=== PATIENT | female | born 1965 | race Caucasian/White ===

== ENCOUNTER 2019-10-03 14:51 | Outpatient (CLI) | payer OTHER, SELFPAY ==
--- NOTE | ~2019-10-03 | MM_ITS ---
EXAMINATION: MM screening [facility] BI w anayeli HISTORY: Screening mammogram TECHNIQUE: Craniocaudal and mediolateral oblique 3-D tomosynthesis images were obtained and synthetic 2-D images were generated. CAD analysis was submitted and interpreted. COMPARISON: 09/25/2018, 09/21/2017, 08/17/2016 bilateral digital screening mammogram examinations BREAST PARENCHYMAL COMPOSITION: There are scattered areas of fibroglandular density. FINDINGS: Stable mild fibroglandular asymmetry. Scattered bilateral benign breast calcifications. The re is no evidence of suspicious mass, calcification, or architectural distortion to suggest malignanc y in either breast. There has been no suspicious interval change. IMPRESSION: 1. No mammographic evidence of malignancy. 2. Recommend routine screening mammography in one year. BI-RADS Category 2: Benign finding(s). Reviewed, dictated and finalized at location A.
== END 2019-10-03 14:52 | disposition home or self-care (01) ==
LOC: ANHIMG 14:53
PROVIDERS: PCP Family Medicine; Visit Provider Family Medicine
DX: Z12.31 Encounter for screening mammogram for malignant neoplasm of breast (principal)
CPT/HCPCS: 77063; 77067

== ENCOUNTER 2020-10-08 07:12 | Outpatient (CLI) | payer OTHER, SELFPAY ==
--- NOTE | ~2020-10-08 | MM_ITS ---
EXAMINATION: MM screening [facility] BI w anayeli HISTORY: Screening mammogram TECHNIQUE: Craniocaudal and mediolateral oblique 3-D tomosynthesis images were obtained and synthetic 2-D images were generated. CAD analysis was submitted and interpreted. COMPARISON: 10/03/2019, 09/25/2018, 09/21/2017 BREAST PARENCHYMAL COMPOSITION: There are scattered areas of fibroglandular density. FINDINGS: Scattered benign-appearing calcifications are present. Also noted is stable focal asymmetry in the central left breast, consistent with a benign finding. There is no evidence of suspicious mas s, calcification, or architectural distortion to suggest malignancy in either breast. There has been no suspicious interval change. IMPRESSION: 1. No mammographic evidence of malignancy. 2. Recommend routine screening mammography in one year. BI-RADS Category 2: Benign finding(s). Reviewed, dictated and finalized at location A.
== END 2020-10-08 07:13 | disposition home or self-care (01) ==
LOC: ANHIMG 07:16
PROVIDERS: PCP Family Medicine; Visit Provider Family Medicine
DX: Z12.31 Encounter for screening mammogram for malignant neoplasm of breast (principal)
CPT/HCPCS: 77063; 77067

== ENCOUNTER 2021-11-22 10:00 | Outpatient (CLI) | payer OTHER, SELFPAY ==
--- NOTE | ~2021-11-22 | MM_ITS ---
EXAMINATION: MM screening [facility] BI w anayeli HISTORY: Screening TECHNIQUE: Craniocaudal and mediolateral oblique 3-D tomosynthesis images were obtained and synthetic 2-D images were generated. CAD analysis was submitted and interpreted. COMPARISON: Comparison to multiple prior studies sequentially, with oldest reviewed study dated 11/2015. BREAST PARENCHYMAL COMPOSITION: There are scattered areas of fibroglandular density. FINDINGS: There is no evidence of suspicious mass, calcification, or architectural distortion to sugg est malignancy in either breast. There has been no suspicious interval change. IMPRESSION: 1. No mammographic evidence of malignancy. 2. Recommend routine screening mammography in one year. BI-RADS Category 1: Negative Reviewed, dictated and finalized at location A.
== END 2021-11-22 10:01 | disposition home or self-care (01) ==
PROVIDERS: PCP Family Medicine; Visit Provider Family Medicine
DX: Z12.31 Encounter for screening mammogram for malignant neoplasm of breast (principal)
CPT/HCPCS: 77063; 77067

== ENCOUNTER 2023-01-23 11:32 | Outpatient (NON) | payer OTHER, SELFPAY | END 2023-01-23 11:33 | disposition home or self-care (01) | PROVIDERS: PCP Family Medicine; Visit Provider Nurse Practitioner | DX: L72.0 Epidermal cyst (principal); R22.9 Localized swelling, mass and lump, unspecified | CPT/HCPCS: 88304 ==

== ENCOUNTER 2023-03-20 07:14 | Outpatient (CLI) | payer OTHER, SELFPAY ==
--- NOTE | ~2023-03-20 | MM_ITS ---
EXAMINATION: MM screening [facility] BI w anayeli HISTORY: Screening mammogram TECHNIQUE: Craniocaudal and mediolateral oblique 3-D tomosynthesis images were obtained and synthetic 2-D images were generated. CAD analysis was submitted and interpreted. COMPARISON: 11/22/2021, 10/08/2020, 10/03/2019 BREAST PARENCHYMAL COMPOSITION:There are scattered areas of fibroglandular density. FINDINGS: Bilateral benign calcifications are present. No suspicious mass, calcification, or architec tural distortion are identified in either breast to suggest malignancy. There has been no suspicious interval change. IMPRESSION: No mammographic evidence of malignancy. Recommend routine screening mammography in one year. BI-RADS Category 2: Benign finding(s). Reviewed, dictated and finalized at location . [employer]
== END 2023-03-20 07:15 | disposition home or self-care (01) ==
PROVIDERS: PCP Family Medicine; Visit Provider Family Medicine
DX: Z12.31 Encounter for screening mammogram for malignant neoplasm of breast (principal)
CPT/HCPCS: 77063; 77067

== ENCOUNTER 2024-04-15 00:16 | Day surgery (SDC) | payer OTHER, SELFPAY ==
[2024-02-22 08:38] VITALS: BMI 34.3
[2024-04-02 15:30] VITALS: BMI 29.3
--- NOTE | 2024-04-15 07:39 | WPDANESEPPF ---
Anes - Initial Pre Proc Eval Procedure: Operation Date: 04/15/24 11:30 Proposed Procedures p Colonoscopy - Carlos Nelson MD Date/Time: 04/15/24 07:39 Surgeon: Carlos Nelson MD Pre Op Diagnosis: Personal history colon polyps Patient Data Age: 59 Gender: F Height: 1.73 m Weight: 87.6 kg Allergies Allergy/AdvReac Type Severity Reaction Status Date / Time peanut Allergy Severe Blister Verified 04/15/24 10:18 Home Medications ?Medication ?Instructions ?Recorded ?Confirmed ?Type calcium 600 mg (as 1 tablet PO BID 03/01/20 02/22/24 History carbonate)-vitamin D3 20 mcg (800 unit) tablet cyanocobalamin (vitamin B-12) 1,000 mcg PO DAILY 03/01/20 02/22/24 History 1,000 mcg tablet aspirin 81 mg chewable tablet 81 mg PO DAILY 01/19/21 02/22/24 History cinnamon bark 500 mg capsule 2,000 mg PO DAILY 03/07/21 02/22/24 History (Cinnamon) magnesium citrate 100 mg tablet 500 mg PO DAILY 03/07/21 02/22/24 History milk thistle 175 mg tablet 250 mg PO BID 03/07/21 02/22/24 History pyridoxine (vitamin B6) 100 mg 100 mg PO DAILY 03/07/21 02/22/24 History tablet turmeric 400 mg capsule 500 mg PO BID 03/07/21 02/22/24 History vitamin E 200 unit capsule 180 unit PO DAILY 03/07/21 02/22/24 History ascorbic acid (vitamin C) 1,000 mg 1 g PO DAILY 02/13/22 02/22/24 History tablet resveratrol 250 mg capsule 250 mg PO DAILY 02/13/22 02/22/24 History valacyclovir 1 gram tablet 1,000 mg PO Q12H #20 tabs 12/18/22 02/22/24 Rx (Valtrex) metformin 1,000 mg tablet 1,000 mg PO BID #180 tabs 07/20/23 02/22/24 Rx dapagliflozin propanediol 10 mg 10 mg PO DAILY #90 tabs 10/23/23 02/22/24 Rx tablet (Farxiga) semaglutide 0.25 mg or 0.5 mg (2 0.5 mg (0.736 mL) subcut WEEKLY #6 03/04/24 04/02/24 Rx mg/3 mL) subcutaneous pen injector mL (Ozempic) lisinopril 40 mg tablet 40 mg PO DAILY #90 tabs 04/11/24 Rx sitagliptin phosphate 100 mg 100 mg PO DAILY #90 tabs 04/11/24 Rx tablet (Januvia) sertraline 50 mg tablet (Zoloft) 50 mg PO DAILY #90 tabs 04/15/24 Rx simvastatin 40 mg tablet 40 mg PO DAILY #90 tabs 04/15/24 Rx Patient hx anesthesia problems: none Family hx anesthesia problems: none Results Review: All pre-operative results and documents have been reviewed as part of the pre-operative evaluation. [facility] Past Medical History Medical History (Updated 04/15/24 @ 07:39 by Efrain Aponte DO) Sleep apnea in adult Generalized anxiety disorder Hyperlipidemia, unspecified Nonalcoholic steatohepatitis (NORMAN) Type 2 diabetes mellitus with unspecified complications Family History Family History Father Diabetes mellitus Family history of dementia Family history of diabetes mellitus in first degree relative Grandparent Diabetes mellitus Family history of cardiovascular disease Family history of malignant neoplasm of breast Family history of emphysema Mother Family history of cardiac disorder Other Hypertension Social History Social History Smoking packs per day: 1 Smoking cigarettes per day: 20.0 Smoking status: Former smoker Alcohol intake: current Drinks per week: 1 Lack of Transportation: No Lack of Food: Never True Current Housing: I Have Housing Concerned About Future Housing: No Difficulty Paying Gas/Electric Bills: No Difficulty Paying for Meds: No Currently Unemployed: No Education: Master's Degree or Higher Difficulty w/ Childcare or Family Care: No Living arrangements: alone Spiritual care concerns: No Anes - Eval Final PreProcedure Day of Procedure 04/15/24 07:39 Patient weight: overweight Heart: regular rate and rhythm Lungs: clear to auscultation Airway: Mallampati scale class II Neurological: alert and oriented Last oral intake: >/= 8 hours ASA classification: III Emergent: no Anesthetic plan: proceed Anesthesia type and monitoring: general GIVS and standard monitoring Results Review: All pre-operative results and documents have been reviewed as part of the pre-operative evaluation. Informed Consent: The patient's anesthetic plan and its attendant risks and benefits were discussed with the patient/family/POA. Questions were solicited and answers provided to the satisfaction of the patient/family/POA.
[2024-04-15 10:19] VITALS: BP 126/75; PULSE 70; RESP 18; TEMP 36.3; O2SAT 98
[2024-04-15] MEDS: LACTATED RINGERS 1,000 ML 150 ML IV CONT (10:33)
[2024-04-15 10:34] LABS: Glucose Point of Care 135 mg/dl (65-105)
--- NOTE | 2024-04-15 10:49 | PM.HPGS ---
History of Present Illness History of Present Illness Consent: Risks, benefits, and alternatives have been discussed and questions answered. Patient agrees to proceed with procedure. Chief complaint: Personal history colon polyps Narrative: Suma Lemons is a 59 year old female with colon polyp 5 years ago Review of Systems Review of Systems: All systems reviewed & are unremarkable except as noted in HPI and below PMFSH Past Medical History Medical History (Updated 04/15/24 @ 07:39 by Efrain Aponte DO) Sleep apnea in adult Generalized anxiety disorder Hyperlipidemia, unspecified Nonalcoholic steatohepatitis (NORMAN) Type 2 diabetes mellitus with unspecified complications Family History Family History Father Diabetes mellitus Family history of dementia Family history of diabetes mellitus in first degree relative Grandparent Diabetes mellitus Family history of cardiovascular disease Family history of malignant neoplasm of breast Family history of emphysema Mother Family history of cardiac disorder Other Hypertension Social History Social History Smoking packs per day: 1 Smoking cigarettes per day: 20.0 Smoking status: Former smoker Alcohol intake: current Drinks per week: 1 Lack of Transportation: No Lack of Food: Never True Current Housing: I Have Housing Concerned About Future Housing: No Difficulty Paying Gas/Electric Bills: No Difficulty Paying for Meds: No Currently Unemployed: No Education: Master's Degree or Higher Difficulty w/ Childcare or Family Care: No Living arrangements: alone Spiritual care concerns: No Meds Home Medications and Allergies Home Medications ?Medication ?Instructions ?Recorded ?Confirmed ?Type calcium 600 mg (as 1 tablet PO BID 03/01/20 04/15/24 History carbonate)-vitamin D3 20 mcg (800 unit) tablet cyanocobalamin (vitamin B-12) 1,000 mcg PO DAILY 03/01/20 04/15/24 History 1,000 mcg tablet aspirin 81 mg chewable tablet 81 mg PO DAILY 01/19/21 04/15/24 History cinnamon bark 500 mg capsule 2,000 mg PO DAILY 03/07/21 04/15/24 History (Cinnamon) magnesium citrate 100 mg tablet 500 mg PO DAILY 03/07/21 02/22/24 History milk thistle 175 mg tablet 250 mg PO BID 03/07/21 04/15/24 History pyridoxine (vitamin B6) 100 mg 100 mg PO DAILY 03/07/21 04/15/24 History tablet turmeric 400 mg capsule 500 mg PO BID 03/07/21 04/15/24 History vitamin E 200 unit capsule 180 unit PO DAILY 03/07/21 04/15/24 History ascorbic acid (vitamin C) 1,000 mg 1 g PO DAILY 02/13/22 04/15/24 History tablet resveratrol 250 mg capsule 250 mg PO DAILY 02/13/22 04/15/24 History valacyclovir 1 gram tablet 1,000 mg PO Q12H #20 tabs 12/18/22 04/15/24 Rx (Valtrex) metformin 1,000 mg tablet 1,000 mg PO BID #180 tabs 07/20/23 04/15/24 Rx dapagliflozin propanediol 10 mg 10 mg PO DAILY #90 tabs 10/23/23 04/15/24 Rx tablet (Farxiga) semaglutide 0.25 mg or 0.5 mg (2 0.5 mg (0.736 mL) subcut WEEKLY #6 03/04/24 04/15/24 Rx mg/3 mL) subcutaneous pen injector mL (Ozempic) lisinopril 40 mg tablet 40 mg PO DAILY #90 tabs 04/11/24 04/15/24 Rx sitagliptin phosphate 100 mg 100 mg PO DAILY #90 tabs 04/11/24 04/15/24 Rx tablet (Januvia) sertraline 50 mg tablet (Zoloft) 50 mg PO DAILY #90 tabs 04/15/24 04/15/24 Rx simvastatin 40 mg tablet 40 mg PO DAILY #90 tabs 04/15/24 04/15/24 Rx Allergies Allergy/AdvReac Type Severity Reaction Status Date / Time peanut Allergy Severe Blister Verified 04/15/24 10:18 Vital Signs Vital Signs - 24 hr 04/15/24 10:19 Temperature 97.4 F L Pulse Rate 70 Respiratory Rate 18 Blood Pressure 126/75 Pulse Oximetry 98 Oxygen Delivery Room Air Exam Const: General: comfortable and no acute distress HENMT: Face/Nose/Sinus: Normal nares present Eyes: General: appearance normal, both eyes and all related structures Neck: Neck: no JVD Resp: Auscultation: clear to auscultation bilaterally Cardio: Rate: regular rate Rhythm: regular rhythm GI: Inspection: non-distended GI Palp: Yes Soft to palpation Skin: General skin exam: normal color Neuro: General: gait normal Speech: normal speech Extrem: General: normal to inspection Psych: Mental Status: mental status grossly normal Assessment and Plan Assessment and plan (1) Colon polyp: Code(s): K63.5 - Polyp of colon Status: Acute Assessment and Plan: colonoscopy
[2024-04-15 11:05] VITALS: BP 88/57; PULSE 69; RESP 19; O2SAT 95
[2024-04-15 11:15] VITALS: BP 101/64; PULSE 65; RESP 20; O2SAT 99
[2024-04-15 11:25] VITALS: BP 103/63; PULSE 69; RESP 21; O2SAT 99
--- OUTSIDE RECORDS SUMMARY | 2024-04-22 01:45 | XMS_ITS | Patient Health Record ---
Author Organization [facility], [facility] Address [address] [place] [address] Support Name Relationship Address Phone Suma Lemons Guarantor Unknown [phone] Reason For Referral No Information Immunizations Vaccine Route Administration Date Status Comme nts Pneumococcal polysaccharide PPV23 (Pneumovax 23) IM Intramuscular 08/08/2007 Administered Plan Of Treatment No Information
== END 2024-04-15 11:34 | disposition home or self-care (01) ==
PROVIDERS: PCP Family Medicine; Visit Provider Internal Medicine Gastroenterology
PROC: 0DJD8ZZ Inspection of Lower Intestinal Tract, Via Natural or Artificial Opening Endoscopic (ICD-10-PCS; CPT 45378; principal; 2024-04-15 11:30)
DX: Z12.11 Encounter for screening for malignant neoplasm of colon (principal); D12.3 Benign neoplasm of transverse colon; K57.30 Diverticulosis of large intestine without perforation or abscess without bleeding; E78.5 Hyperlipidemia, unspecified; E11.8 Type 2 diabetes mellitus with unspecified complications; G47.30 Sleep apnea, unspecified; F41.1 Generalized anxiety disorder; K75.81 Nonalcoholic steatohepatitis (NASH); Z79.82 Long term (current) use of aspirin; Z79.84 Long term (current) use of oral hypoglycemic drugs; Z79.85 Long-term (current) use of injectable non-insulin antidiabetic drugs; Z87.891 Personal history of nicotine dependence; Z80.3 Family history of malignant neoplasm of breast; Z82.49 Family history of ischemic heart disease and other diseases of the circulatory system
CPT/HCPCS: 45385; 82948; 88305; J2704; J7120